=== PATIENT | female | born 1995 | race Caucasian/White ===

== ENCOUNTER 2018-07-04 13:32 | Observation (INO) ==
[2018-07-04] MEDS ORDERED: PROMETHAZINE HCL 12.5 MG in SODIUM CHLORIDE 0.9% 50 ML IV STA (14:15)
[2018-07-04] MEDS ORDERED: ACETAMINOPHEN 1,000 MG/100 ML VIAL IV STA (14:15)
[2018-07-04] MEDS ORDERED: ONDANSETRON INJ 2 MG/ML 2 ML VIAL IV STA (14:15)
[2018-07-04] MEDS ORDERED: SODIUM CHLORIDE 0.9% 1000ML 1,000 ML IV ONE (14:15)
[2018-07-04] MEDS ORDERED: KETOROLAC TROMETHAMINE 15 MG/ML VIAL IV STA (14:15)
[2018-07-04] MEDS ORDERED: PROMETHAZINE 12.5 MG/50.5 ML NSS IV ONE (14:23)
[2018-07-04 14:24] LABS: Basophils # (auto) 0.06 K/uL (0-0.2); Basophils % (auto) 0.4 %; Hematocrit (blood only) 48.3 % (37-47); Immature Granulocytes # (auto) 0.04 K/uL (0.00-0.02); Immature Granulocytes % (auto) 0.3 %; Lymphocytes # (auto) 1.28 K/uL (1.2-3.4); Lymphocytes % (auto) 8.1 %; Mean Corpuscular Hgb Conc 37.3 g/dL (32-36); Mean Corpuscular Volume 90.6 fL (80-100); Mean Platelet Volume 12.2 fL (7.4-10.4); Monocytes # (auto) 0.38 K/uL (0.11-0.59); Monocytes % (auto) 2.4 %; Neutrophils # (auto) 14.07 K/uL (1.4-6.5); Neutrophils % (auto) 88.8 %; Platelet Count 317 K/uL (130-400); RDW Coefficient of Variation 12.6 % (11.5-14.5); Red Blood Count 5.33 M/uL (4.2-5.4); White Blood Count 15.83 K/uL (4.8-10.8)
[2018-07-04] MEDS: MoRPHine SULFATE 4 MG/ML 1 ML CARP\\VIAL IV PRN ×2 (14:25→15:59)
[2018-07-04 14:35] LABS: Albumin Level 4.3 gm/dl (3.4-5.0); BUN Creatinine Ratio 15.6 (10-20); Calcium 9.5 mg/dl (8.5-10.1); Creatinine Clr Calc Pharmacy 108.3 ml/min; Est GFR (African American) 99.1; Est GFR (Non-African American) 85.5; Magnesium 2.2 mg/dl (1.8-2.4); Potassium 4.2 mmol/L (3.5-5.1)
[2018-07-04 14:38] LABS: Bilirubin,Total 0.7 mg/dl (0.2-1); Globulin 4.2 gm/dl (2.5-4.0); Total Protein 8.5 gm/dl (6.4-8.2)
--- NOTE | 2018-07-04 14:46 | XRay Report ---
XR chest 1V portable CLINICAL HISTORY: Possible free air COMPARISON STUDY: No previous studies for comparison. FINDINGS: No lucency is identified under the hemidiaphragms to suggest pneumoperitoneum. Lung volumes are normal and the lungs are clear. There is no pneumothorax or pleural effusion. Cardiac size is no rmal. Mediastinal contours are normal. IMPRESSION: 1. No acute cardiopulmonary findings. 2. No lucency under the hemidiaphragms to suggest pneumoperitoneum on upright chest radiograph. Electronically signed by: Tuan Menjivar M.D. 07/04/2018 2:44 PM
[2018-07-04 15:01] LABS: Pregnancy Test, Serum Negative (Negative)
--- NOTE | 2018-07-04 15:13 | Emergency Department Note ---
Entered by Miguel Angel Zhou acting as a scribe for Ahmet Gardner MD History of Present Illness General Chief complaint: Vomiting Time Seen by Provider: 07/04/18 14:07 Source: patient History of Present Illness Onset (ago): hour(s) 6 Location: abdomen Pain Consistency: + other (persistent) Quality: + other (nausea and vomiting) Associated symptoms: + other (upper abdominal pain) The patient is a 23 year old female who presents to the Emergency Room via BLS from [facility] with complaints of persistent nausea and vomiting beginning this morning at 08:00, about six hours ago. The patient states that she is still nauseous and has vomited several times today. She was given a dose of Phenergan and Valium this morning, and she was also given two doses of Zofran but spit up the second dose. The patient also reports some persistent upper abdominal pain. The patient has a history of methamphetamine, heroin, and other drug abuse and checked in last night to [facility] for rehabilitation. She states that her last substance use was heroin five days ago. She reports a history of heroin withdrawal and does not feel her current symptoms are similar. She does believe her symptoms are similar to prior gallbladder attacks, stating that she still has her gallbladder. She cannot think of anything that would have triggered her symptoms this morning. Home Medications Home Medications Medication Instructions Recorded Confirmed Type No Known Home Medications 07/04/18 07/04/18 History Allergies Allergy/AdvReac Type Severity Reaction Status Date / Time No Known Allergies Allergy Unverified 07/04/18 14:18 Past Med/Surg History Medical History History of drug abuse Social History Feels Safe at Home: Yes Smoking Status: Current every day smoker Hx Substance Use: Yes Review of Systems See HPI for pertinent positives & negatives. and A total of 10 systems reviewed and were otherwise negative Physical Exam Vital Signs Vital Signs - 24 hr 07/04/18 13:45 07/04/18 15:56 07/04/18 16:31 Temperature 36.9 C Temperature Source Oral Sepsis Recent Fever Within 48 Hours No Sepsis New/Unexplained Change in Mental Status No Sepsis Action Taken by Nursing No Action Required Pulse Rate 72 89 Pulse Rate [Apical] 63 Respiratory Rate 18 23 15 Respiratory Depth Normal Blood Pressure 98/81 L 123/74 Blood Pressure [Left Arm] 113/75 Blood Pressure Mean 86 90 Blood Pressure Mean [Left Arm] 87 Blood Pressure Position [Left Arm] Pulse Oximetry 98 100 97 Oxygen Delivery Method Room Air Room Air Room Air 07/04/18 17:01 07/04/18 17:30 07/04/18 17:58 Temperature Temperature Source Sepsis Recent Fever Within 48 Hours Sepsis New/Unexplained Change in Mental Status Sepsis Action Taken by Nursing Pulse Rate 68 56 L Pulse Rate [Apical] 58 L Respiratory Rate 18 24 19 Respiratory Depth Blood Pressure 132/82 137/90 Blood Pressure [Left Arm] 124/80 Blood Pressure Mean 98 105 Blood Pressure Mean [Left Arm] 94 Blood Pressure Position [Left Arm] Pulse Oximetry 97 98 Oxygen Delivery Method Room Air Room Air 07/04/18 18:15 Temperature 36.9 C Temperature Source Oral Sepsis Recent Fever Within 48 Hours Sepsis New/Unexplained Change in Mental Status Sepsis Action Taken by Nursing Pulse Rate Pulse Rate [Apical] 63 Respiratory Rate 17 Respiratory Depth Blood Pressure Blood Pressure [Left Arm] 119/73 Blood Pressure Mean Blood Pressure Mean [Left Arm] 88 Blood Pressure Position [Left Arm] Lying Pulse Oximetry 98 Oxygen Delivery Method Room Air GENERAL: Patient is in moderate distress secondary to pain and nausea. She is vomiting. HEENT: No acute trauma, normocephalic atraumatic, mucous membranes moist, no nasal congestion, no scleral icterus. NECK: No stridor, no adenopathy, no meningismus, trachea is midline. LUNGS: Wheezing bilaterally, breath sounds full and equal, no respiratory distress. HEART: Without murmurs gallops or rubs, regular rate and rhythm. ABDOMEN: Soft, moderate tenderness of the upper quadrants and epigastrium, bowel sounds positive, no hernias, no peritonitis. EXTREMITIES: No cyanosis or edema, full range of motion of all the joints without pain or difficulty, no signs for acute trauma. NEUROLOGIC: Oriented x 3, no acute motor or sensory deficits, no focal weakness. SKIN: Healing circular scabs about the face that are possibly consistent with methamphetamine abuse, no jaundice, no diaphoresis. Course 141: The patient was evaluated in room A9B. A complete history and physical examination were performed. 1456: I spoke to the patients mother on the phone. She states that 1.5 months ago the patient was kept in the [facility] for a week and had several tests including CT, endoscopy, and ultrasound that did not show any concerning findings. In retrospect the mother believes her symptoms at that time were due to withdrawal, and she feels this might also be the cause of her current symptoms. 1608: I checked on the patient, who states that she is feeling better. I updated her on the plan for hospitalization. 1620: I consulted Dr. Smith [facility] Hospitalist. The patient will be reevaluated for hospitalization. Administered Medications Lorazepam (Ativan) 1 mg in 2 mls @ 2 mls/min IV Q4H PRN PRN Reason: Agitation Stop: 08/03/18 18:06 Last Admin: 07/04/18 20:00 Dose: 2 mls/min Documented by: [id number] Discontinued Medications Acetaminophen (Ofirmev) 1,000 mg in 100 mls @ 400 mls/hr IV NOW STA Stop: 07/04/18 14:29 Last Infusion: 07/04/18 15:06 Dose: 0 mls/hr Documented by: [id number] Admin: 07/04/18 14:51 Dose: 400 mls/hr Documented by: [id number] Sodium Chloride (Nss 1000ml) 1,000 mls @ 999 mls/hr IV .Q1H1M ONE Stop: 07/04/18 15:15 Last Infusion: 07/04/18 15:26 Dose: 0 mls/hr Documented by: [id number] Admin: 07/04/18 14:25 Dose: 999 mls/hr Documented by: [id number] Promethazine HCl 12.5 mg/ (Sodium Chloride) 50.5 mls @ 202 mls/hr IV NOW STA Stop: 07/04/18 14:29 Last Admin: 07/04/18 14:30 Dose: Not Given Documented by: [id number] Multivitamins 10 ml/ Thiamine HCl 100 mg/ Folic Acid 1 mg/Sodium Chloride 1,011.2 mls @ 1,011.2 mls/hr IV .Q1H NONA Stop: 07/04/18 19:59 Last Admin: 07/04/18 19:37 Dose: 1,011.2 mls/hr Documented by: [id number] Ioversol (Optiray 320 100ml) 95 ml IV ONCE PRN PRN Reason: Interaction Checking Stop: 07/08/18 15:48 Last Admin: 07/04/18 15:49 Dose: 95 ml Documented by: [id number] Ketorolac Tromethamine (Toradol) 15 mg IV NOW STA Stop: 07/04/18 14:16 Last Admin: 07/04/18 14:25 Dose: 15 mg Documented by: [id number] Morphine Sulfate (Morphine Sulfate) 4 mg IV Q15M PRN PRN Reason: Pain Stop: 07/18/18 14:14 Last Admin: 07/04/18 15:59 Dose: 4 mg Documented by: [id number] Admin: 07/04/18 14:25 Dose: 4 mg Documented by: [id number] Ondansetron HCl (Zofran) 4 mg IV NOW STA Stop: 07/04/18 14:16 Last Admin: 07/04/18 14:25 Dose: 4 mg Documented by: [id number] Promethazine HCl (Phenergan) Confirm Administered Dose 12.5 mg IV .STK-MED ONE Stop: 07/04/18 14:24 Last Admin: 07/04/18 14:30 Dose: 12.5 mg Documented by: [id number] Medical Decision Making Differential Diagnosis Differential diagnosis: opiate withdrawal, acute cholecystitis, gastritis, hernia, pancreatitis, bowel rupture, bowel obstruction, biliary colic, dehydration Medical Records Attestation: I reviewed the patient's medical records. Home Medications Current Medication List: was personally reviewed by me Laboratory Data Attestation: I reviewed the patient's lab results. Result diagrams: 07/04/18 14:02 07/04/18 14:02 Lab Results 07/04/18 07/04/18 07/04/18 Range/Units 14:02 14:02 14:02 WBC 15.83 H (4.8-10.8) K/uL RBC 5.33 (4.2-5.4) M/uL Hgb 18.0 H (12.0-16.0) g/dL Hct 48.3 H (37-47) % MCV 90.6 (80-100) fL MCH 33.8 (25-34) pg MCHC 37.3 H (32-36) g/dL RDW Std Deviation 42.0 (36.4-46.3) fL RDW Coeff of Benedict 12.6 (11.5-14.5) % Plt Count 317 (130-400) K/uL MPV 12.2 H (7.4-10.4) fL Immature Gran % (Auto) 0.3 % Neut % (Auto) 88.8 % Lymph % (Auto) 8.1 % Beltrami % (Auto) 2.4 % Eos % (Auto) 0.0 % Baso % (Auto) 0.4 % Immature Gran # (Auto) 0.04 H (0.00-0.02) K/uL Neut # (Auto) 14.07 H (1.4-6.5) K/uL Lymph # (Auto) 1.28 (1.2-3.4) K/uL Bel[place]ami # (Auto) 0.38 (0.11-0.59) K/uL Eos # (Auto) 0.00 (0-0.5) K/uL Baso # (Auto) 0.06 (0-0.2) K/uL Sodium 139 (136-145) mmol/L Potassium 4.2 (3.5-5.1) mmol/L Chloride 106 (98-107) mmol/L Carbon Dioxide 24 (21-32) mmol/L Anion Gap 9.0 (3-11) BUN 15 (7-18) mg/dl Creatinine 0.94 (0.6-1.2) mg/dl Est Cr Clr Drug Dosing 108.3 ml/min Est GFR ( Amer) 99.1 Est GFR (Non-Af Amer) 85.5 BUN/Creatinine Ratio 15.6 (10-20) Glucose 104 H (70-99) mg/dl Lactate (0.4-2.0) mmol/L Calcium 9.5 (8.5-10.1) mg/dl Magnesium 2.2 (1.8-2.4) mg/dl Total Bilirubin 0.7 (0.2-1) mg/dl AST 14 L (15-37) U/L ALT 23 (12-78) U/L Alkaline Phosphatase 67 (45-117) U/L Total Protein 8.5 H (6.4-8.2) gm/dl Albumin 4.3 (3.4-5.0) gm/dl Globulin 4.2 H (2.5-4.0) gm/dl Albumin/Globulin Ratio 1.0 (0.9-2) Lipase 71 L (73-393) U/L HCG, Qual Negative (Negative) 07/04/18 Range/Units 14:36 WBC (4.8-10.8) K/uL RBC (4.2-5.4) M/uL Hgb (12.0-16.0) g/dL Hct (37-47) % MCV (80-100) fL MCH (25-34) pg MCHC (32-36) g/dL RDW Std Deviation (36.4-46.3) fL RDW Coeff of Benedict (11.5-14.5) % Plt Count (130-400) K/uL MPV (7.4-10.4) fL Immature Gran % (Auto) % Neut % (Auto) % Lymph % (Auto) % Beltrami % (Auto) % Eos % (Auto) % Baso % (Auto) % Immature Gran # (Auto) (0.00-0.02) K/uL Neut # (Auto) (1.4-6.5) K/uL Lymph # (Auto) (1.2-3.4) K/uL Beltrami # (Auto) (0.11-0.59) K/uL Eos # (Auto) (0-0.5) K/uL Baso # (Auto) (0-0.2) K/uL Sodium (136-145) mmol/L Potassium (3.5-5.1) mmol/L Chloride (98-107) mmol/L Carbon Dioxide (21-32) mmol/L Anion Gap (3-11) BUN (7-18) mg/dl Creatinine (0.6-1.2) mg/dl Est Cr Clr Drug Dosing ml/min Est GFR ( Amer) Est GFR (Non-Af Amer) BUN/Creatinine Ratio (10-20) Glucose (70-99) mg/dl Lactate 1.0 (0.4-2.0) mmol/L Calcium (8.5-10.1) mg/dl Magnesium (1.8-2.4) mg/dl Total Bilirubin (0.2-1) mg/dl AST (15-37) U/L ALT (12-78) U/L Alkaline Phosphatase (45-117) U/L Total Protein (6.4-8.2) gm/dl Albumin (3.4-5.0) gm/dl Globulin (2.5-4.0) gm/dl Albumin/Globulin Ratio (0.9-2) Lipase (73-393) U/L HCG, Qual (Negative) Imaging Data Radiologist's Impression: Radiology results as stated below per my review and the radiologist's interpretation: CT OF THE ABDOMEN AND PELVIS WITH CONTRAST CLINICAL HISTORY: Epigastric pain and vomiting. Possible perforation. COMPARISON STUDY: None. TECHNIQUE: Following IV administration of 95 mL of Optiray-320, axial images of the abdomen and pelvis were obtained from the lung bases to the proximal femurs. Images were reviewed in the axial, sagittal, and coronal planes. IV contrast was administered without complication. Automated exposure control was utilized for the study. A dose lowering technique was utilized adhering to the principles of ALARA. CT DOSE: 925.12 mGycm FINDINGS: Lung bases are clear. No pneumatosis, free air or portal venous gas is present. The liver, spleen, adrenal glands, kidneys and pancreas are unremarkable. There is no biliary or pancreatic ductal dilatation. There is no peripancreatic or pericholecystic infiltration. No hydronephrosis is present and both nephrograms are symmetric. There is no evidence for a bowel obstruction. The appendix is partially visualized portions are normal. There is no right lower quadrant inflammation. There are no ureteral calculi. Contrast within the collecting systems decreases sensitivity for detection of renal calculi. The ovaries are not enlarged. IMPRESSION: 1. No acute process within the abdomen or pelvis. 2. Partially obscured appendix but no right lower quadrant inflammation. Electronically signed by: Tuan Menjivar M.D. 07/04/2018 4:02 PM XR chest 1V portable CLINICAL HISTORY: Possible free air COMPARISON STUDY: No previous studies for comparison. FINDINGS: No lucency is identified under the hemidiaphragms to suggest pneumoperitoneum. Lung volumes are normal and the lungs are clear. There is no pneumothorax or pleural effusion. Cardiac size is normal. Mediastinal contours are normal. IMPRESSION: 1. No acute cardiopulmonary findings. 2. No lucency under the hemidiaphragms to suggest pneumoperitoneum on upright chest radiograph. Electronically signed by: Tuan Menjivar M.D. 07/04/2018 2:44 PM ECG Data Attestation: I personally reviewed and interpreted this ECG as follows: Indication: vomiting Rate (beats per minute): 57 Rhythm: sinus bradycardia Findings: no PVC and no ST elevation Blood Pressure Blood Pressure Findings: Normal blood pressure Blood Pressure Disposition: did not require urgent referral MDM Narrative There is a moderate leukocytosis at 15,000, this could be consistent with infection or just her vomiting. Hemoglobin was actually high at 18. Platelet count was normal. No significant electrolyte abnormality or kidney failure. Lactic acid level was not elevated making bowel ischemia or sepsis less likely. There was no findings of hepatitis. No findings of pancreatitis. testing was negative. Chest film did not show mediastinal widening, pneumonia or free air. Abdominal and pelvis CT showed no acute surgical process. No free air, no bowel obstruction. The gallbladder and pancreas appeared normal on CT scan. The patient was given IV Tylenol, IV Toradol, IV morphine, IV Zofran and IV Phenergan. She received IV saline. The patient still has some abdominal pain but feels improved. She is no longer vomiting. I talked with her about staying in the hospital for further care. At this point, I suspect her presentation is consistent with narcotic withdrawal. I did speak to the patient's mother over the phone. The patient had a very similar presentation a month and a half ago, multiple tests were performed and no reason for her symptoms was discovered. In retrospect, the patient's mother now believes the recent hospitalization was secondary to withdrawal. I did speak to the patient at length about my findings, I talked with the correctional case records supervisor. The on-call hospitalist was consulted. Impression & Plan Epigastric abdominal pain, Vomiting, Dehydration, Withdrawal syndrome Discharge Plan Visit Data *Final* Discharge Date/Time: 07/04/18 18:03 Chief Complaint: Vomiting ED Provider: Ahmet Gardner Discharge Problem: Epigastric abdominal pain, Vomiting, Dehydration, Withdrawal syndrome Patient Disposition: Admitted As Inpatient Discharge Instructions Interventions: ED Discharge Assessment Last Done: 07/04/18 18:03 Discharge Problem: Vomiting Qualifiers: Vomiting type: unspecified Vomiting Intractability: non-intractable Nausea presence: with nausea Qualified Code(s): R11.2 - Nausea with vomiting, unspecified Withdrawal syndrome Qualifiers: Substance type: opioid Qualified Code(s): F11.23 - Opioid dependence with withdrawal The patricio's documentation has been prepared under my direction and personally reviewed by me in its entirety. I confirm that the note above accurately reflec ts all work, treatment, procedures, and medical decision making performed by me.
[2018-07-04] MEDS ORDERED: IOVERSOL 100ml IV PRN (15:49)
--- NOTE | 2018-07-04 16:04 | CT Scan Report ---
CT OF THE ABDOMEN AND PELVIS WITH CONTRAST CLINICAL HISTORY: Epigastric pain and vomiting. Possible perforation. COMPARISON STUDY: None. TECHNIQUE: Following IV administration of 95 mL of Optiray-320, axial images of the abdomen and pelvi s were obtained from the lung bases to the proximal femurs. Images were reviewed in the axial, sagitt al, and coronal planes. IV contrast was administered without complication. Automated exposure contro l was utilized for the study. A dose lowering technique was utilized adhering to the principles of A MANDO. CT DOSE: 925.12 mGycm FINDINGS: Lung bases are clear. No pneumatosis, free air or portal venous gas is present. The liver, spleen, adrenal glands, kidneys and pancreas are unremarkable. There is no biliary or pancreatic duct al dilatation. There is no peripancreatic or pericholecystic infiltration. No hydronephrosis is prese nt and both nephrograms are symmetric. There is no evidence for a bowel obstruction. The appendix is partially visualized portions are normal. There is no right lower quadrant inflammation. There are no ureteral calculi. Contrast within the collecting systems decreases sensitivity for detection of kervin l calculi. The ovaries are not enlarged. IMPRESSION: 1. No acute process within the abdomen or pelvis. 2. Partially obscured appendix but no right lower quadrant inflammation. Electronically signed by: Tuan Menjivar M.D. 07/04/2018 4:02 PM
--- NOTE | 2018-07-04 16:17 | History & Physical Report ---
Date of Service July 04, 2018 Assessment & Plan (1) Vomiting: At this time we feel her vomiting is most likely related to withdrawal. Possibly gastritis should be placed on intravenous hydration and intravenous Pepcid therapy after banana bag. (2) Withdrawal syndrome: Likely this patient having a multi-pharmaceutical withdrawal. [facility] to be on a scheduled Suboxone taper, this would be 8 mg twice daily for the first 2 days then reduce to 4 mg twice daily for 2 days and 2 mg twice daily for 2 days and 1 mg twice daily for 2 days. Additional medicines recommended are Vistaril 50 mg p.o. for anxiety doxepin 50 mg p.o. for insomnia clonidine 0.1 PRN for hypertension Imodium as needed for diarrhea Valium as needed for agitation and naloxone as needed for sedation We will continue the Suboxone we have clonidine PRN Ativan for hypertension and anxiety and Imodium for diarrhea. History of Present Illness Primary Care Provider: NO PCP 23-year-old female who recently went to drug and alcohol rehab she presented to our hospital with intractable nausea vomiting abdominal pain. After arrival her mother called the emergency room physician, Dr. Gardner, and said that she had gone through a similar episode about 1 month prior to out to the hospital at which time she is an inpatient stay with multiple testing including endoscopy without any evidence of etiology of her abdominal pain including ruling out gallbladder disease. In our ER she is fairly normal laboratories, CT scan of abdomen pelvis with contrast which does not show any intra-abdominal pathology. She is given 4 of morphine and Zofran she her symptoms have improved although she did have one mor e episode of vomiting. She denies having any unusual foods, she denies any IV drug abuse, Her withdrawal paperwork from a dose of drug and alcohol rehab includes B drugs of abuse of heroin, methamphetamine, barbiturates, benzodiazepines, and MDMA Attempts to obtain family history is UNobtainable as the patient is lethargic and mumbling Allergies Allergy/AdvReac Type Severity Reaction Status Date / Time No Known Allergies Allergy Unverified 07/04/18 14:18 Home Medications Home Medications Medication Instructions Recorded Confirmed Type No Known Home Medications 07/04/18 07/04/18 History Past Med/Surg History Medical History History of drug abuse Social History Preferred Language: [place] Islander Communication Ability: Effective 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 She is skin cameron consistent with methamphetamine usage on her face and she has what appears to be thinning of the enamel of her teeth consistent with methamphetamine also. Vital signs as documented. Head exam is unremarkable. normocephalic, atraumatic Neck is without jugular venous distension, thyromegaly, or lymphademopathy Lungs are clear to auscultation and percussion. Cardiac exam reveals Rhythm is regular. First and second heart sounds normal. Abdominal exam reveals normal bowel sounds, no masses, no organomegaly is tender to examination no rebound no guarding there is no CVA angle tenderness although she complains of midline lower back tenderness Extremities are nonedematous and both pedal pulses are present Neurologic exam is unfortunately she is sedated due to the recent morphine and Zofran administration Psychologically cannot be assessed at this time due to sedation Skin is warm Dry she has marked facial changes of acne or methamphetamine skin changes Results & Data Vital Signs (Past 12 Hours) Vital Signs Temp Pulse Pulse Resp BP BP Pulse Ox 07/04/18 15:56 63 23 113/75 100 07/04/18 13:45 36.9 C 72 18 98/[address] abdomen pelvis with contrast No acute process within the abdomen or pelvis. Partially obscured appendix but no right lower quadrant inflammation. (1) Withdrawal syndrome Substance type: opioid Qualified Code(s): F11.23 - Opioid dependence with withdrawal (2) Vomiting Nausea presence: with nausea Vomiting Intractability: non-intractable Vomiting type: unspecified Qualified Code(s): R11.2 - Nausea with vomiting, unspecified
[2018-07-04] MEDS ORDERED: PROMETHAZINE HCL 12.5 MG in SODIUM CHLORIDE 0.9% 50 ML IV PRN (18:07)
[2018-07-04] MEDS ORDERED: LOPERAMIDE HCL 2 MG CAP PO PRN (18:07)
[2018-07-04] MEDS ORDERED: cloNIDine HCl 0.1 MG TAB PO PRN (18:07)
[2018-07-04] MEDS ORDERED: LORazepam 1 MG/2 ML VIAL IV PRN (18:07)
[2018-07-04] MEDS ORDERED: ACETAMINOPHEN 325 MG TAB PO PRN (18:07)
[2018-07-04] MEDS ORDERED: ONDANSETRON INJ 2 MG/ML 2 ML VIAL IV PRN (18:07)
[2018-07-04] MEDS ORDERED: ALUMINUM/MAGNESIUM SUSP 30 ML UDC PO PRN (18:07)
[2018-07-04] MEDS ORDERED: MULTI-VITAMIN INFUSION 10 ML, THIAMINE HCL 100 MG, FOLIC ACID 1 MG in SODIUM CHLORIDE 0... IV SCH (19:00)
[2018-07-04] MEDS ORDERED: FAMOTIDINE 20MG/5ML IV PUSH IV SCH (21:00)
[2018-07-04] MEDS: SODIUM CHLORIDE 0.9% 1000ML 1,000 ML IV SCH (21:11)
[2018-07-04] MEDS: FAMOTIDINE 20 MG in SYRINGE 3 ML IV SCH (21:11)
[2018-07-04] MEDS: BUPRENORPHINE/NALOXONE 8/2 MG TAB SL SCH (21:27)
[2018-07-05 06:23] LABS: Appearance Urine Clear (Clear); Bacteria Urine Automated Negative (Negative); Bilirubin Urine Negative (Negative); Blood Urine Negative (Negative); Color Urine Yellow; Epithelial Cell Urine Auto >30 /lpf (0-5); Glucose Urine UA Negative (Negative); Leukocyte Esterase Urine Negative (Negative); Nitrite Urine Negative (Negative); Protein Urine Trace (Negative); Specific Gravity Urine > 1.045 (1.000-1.030); Urobilinogen Urine Negative (Negative); pH Urine 5.5 (4.5-7.5)
[2018-07-05 06:25] LABS: Ketones Urine 4+ (Negative)
[2018-07-05 08:13] LABS: Hematocrit (blood only) 44.3 % (37-47); Hemoglobin 15.7 g/dL (12.0-16.0); Mean Corpuscular Hgb Conc 35.4 g/dL (32-36); Mean Corpuscular Volume 91.7 fL (80-100); Mean Platelet Volume 12.6 fL (7.4-10.4); Platelet Count 272 K/uL (130-400); RDW Coefficient of Variation 12.8 % (11.5-14.5); RDW Standard Deviation 42.9 fL (36.4-46.3); Red Blood Count 4.83 M/uL (4.2-5.4); White Blood Count 13.37 K/uL (4.8-10.8)
[2018-07-05] MEDS: SODIUM CHLORIDE 0.9% 1000ML 1,000 ML IV SCH ×2 (08:38→16:26)
[2018-07-05 08:55] LABS: BUN Creatinine Ratio 14.5 (10-20); Calcium 8.8 mg/dl (8.5-10.1); Creatinine Clr Calc Pharmacy 135.7 ml/min; Est GFR (African American) 130.2; Est GFR (Non-African American) 112.4; Potassium 3.6 mmol/L (3.5-5.1)
[2018-07-05] MEDS: FAMOTIDINE 20 MG in SYRINGE 3 ML IV SCH ×2 (09:54→20:36)
[2018-07-05] MEDS: BUPRENORPHINE/NALOXONE 8/2 MG TAB SL SCH ×2 (10:10→20:34)
--- NOTE | 2018-07-05 16:21 | Hospitalist Progress Note ---
Date of Service July 05, 2018 Assessment & Plan (1) Vomiting: Her vomiting is improving and is related to withdrawal. We will continue to hydrate her she is not dramatically eating food yet we will continue to offer this to her Patient is developing hyperchloremia from the persistent normal saline infusion will change to lactated Ringer's 5/5 (2) Withdrawal syndrome: This patient having a multi-pharmaceutical withdrawal. According to [facility] we will institute and continue a scheduled Suboxone taper, this would be 8 mg twice daily for the first 2 days then reduce to 4 mg twice daily for 2 days and 2 mg twice daily for 2 days and 1 mg twice daily for 2 days. AdditionallyVistaril 50 mg p.o. for anxiety doxepin 50 mg p.o. for insomnia clonidine 0.1 PRN for hypertension Imodium as needed for diarrhea Valium as needed for agitation clonidine PRN for hypertension Subjective Patient still lethargic but much more awake and alert today. She is then asked for any additional parenteral opiates and she is on Suboxone taper as directed by her previous rehab center. We discussions with the bedside she is planning on returning to the rehab center when she is somewhat better. She did have some episodes of vomiting earlier this morning but none since that time Review of Systems Review of Systems: ROS: well nourished well developed. Has typical facial acne associate with methamphetamine use No double vision blurry vision No problems with speech or swallowing No palpitations, chest pain or pressure No Wheezing or breathing issues Persistent but improving abdominal pain and mild nausea with vomiting this a.m. no complains of diarrhea yet No burning urine urine frequency or changes in color No focal joint pain or muscle pain Facial skin acne No unusual bruising or bleeding Persistent low back pain without radicular complaints No changes in memory or confusion Physical Exam Physical Exam: The patient appeared well nourished and normally developed. In only mild distress today Vital signs as documented. Head exam is unremarkable. normocephalic, atraumatic Neck is without jugular venous distension, thyromegaly, or lymphademopathy Lungs are clear to auscultation and percussion. Cardiac exam reveals Rhythm is regular. First and second heart sounds normal. Abdominal exam reveals normal bowel sounds, no masses, no organomegaly Extremities are nonedematous and both pedal pulses are present Neurologic exam is A&Ox3 Psychologically seems depressed Skin is warm Dry with facial skin changes consistent with methamphetamine use Results & Data Vital Signs (Past 12 Hours) Vital Signs Temp Pulse Pulse Resp BP BP Pulse Ox 07/05/18 15:39 36.5 C 71 18 102/62 96 07/05/18 07:15 36.8 C 69 16 118/71 97 (1) Withdrawal syndrome Substance type: opioid Qualified Code(s): F11.23 - Opioid dependence with withdrawal (2) Vomiting Nausea presence: with nausea Vomiting Intractability: non-intractable Vomiting type: unspecified Qualified Code(s): R11.2 - Nausea with vomiting, unspecified
[2018-07-05] MEDS: LACTATED RINGER'S 1,000 ML IV SCH (16:25)
[2018-07-05 17:25] LABS: INR 1.2 (0.9-1.1); Prothrombin Time 11.8 Seconds (9.0-12.0)
[2018-07-05] MEDS ORDERED: ENOXAPARIN INJ 40 MG/0.4 ML SYR SQ SCH (18:00)
[2018-07-05 21:33] LABS: Amphetamines+Metham, Urine Neg (Neg); Barbiturates, Urine Neg (Neg); Benzodiazepine, Urine Neg (Neg); Cocaine, Urine Neg (Neg); MDMA (Ecstacy), Urine Neg (Neg); Methadone, Urine Neg (Neg); Opiate, Urine Pos (Neg); Phencyclidine, Urine Neg (Neg)
[2018-07-06] MEDS: LACTATED RINGER'S 1,000 ML IV SCH ×2 (00:03→08:08)
[2018-07-06 06:32] LABS: Hematocrit (blood only) 38.9 % (37-47); Mean Corpuscular Volume 91.1 fL (80-100); Mean Platelet Volume 12.1 fL (7.4-10.4); Platelet Count 205 K/uL (130-400); RDW Coefficient of Variation 12.7 % (11.5-14.5); RDW Standard Deviation 42.5 fL (36.4-46.3); Red Blood Count 4.27 M/uL (4.2-5.4); White Blood Count 8.12 K/uL (4.8-10.8)
[2018-07-06 07:05] VITALS: BP 97/58; TEMP 97.9; O2SAT 95
[2018-07-06 07:14] LABS: BUN Creatinine Ratio 11.3 (10-20); Calcium 8.3 mg/dl (8.5-10.1); Creatinine Clr Calc Pharmacy 143.4 ml/min; Est GFR (African American) 139.1; Est GFR (Non-African American) 120.1; Potassium 3.6 mmol/L (3.5-5.1)
[2018-07-06] MEDS: FAMOTIDINE 20 MG in SYRINGE 3 ML IV SCH (08:10)
[2018-07-06] MEDS: BUPRENORPHINE/NALOXONE 8/2 MG TAB SL SCH (08:38)
[2018-07-06] MEDS ORDERED: BUPRENORPHINE/NALOXONE 2/0.5MG 1 TAB PO SCH ×2 (09:00→21:00)
--- NOTE | 2018-07-06 10:47 | Discharge Summary ---
Date of Service July 06, 2018 Admission HPI Per Admitting Provider 23-year-old female who recently went to drug and alcohol rehab she presented to our hospital with intractable nausea vomiting abdominal pain. After arrival her mother called the emergency room physician, Dr. Gardner, and said that she had gone through a similar episode about 1 month prior to out to the hospital at which time she is an inpatient stay with multiple testing including endoscopy without any evidence of etiology of her abdominal pain including ruling out gallbladder disease. In our ER she is fairly normal laboratories, CT scan of abdomen pelvis with contrast which does not show any intra-abdominal pathology. She is given 4 of morphine and Zofran she her symptoms have improved although she did have one more episode of vomiting. She denies having any unusual foods, she denies any IV drug abuse, Her withdrawal paperwork from a dose of drug and alcohol rehab includes B drugs of abuse of heroin, methamphetamine, barbiturates, benzodiazepines, and MDMA Attempts to obtain family history is UNobtainable as the patient is lethargic and mumbling Principal Diagnosis Nausea/vomiting, Opioid withdrawal Discharge Exam Constitutional WD/WN, vitals as above Eyes PERRL, conjunctivae normal, anicteric sclerae ENMT external ear and nose normal, oropharynx normal Neck trachea midline, no thyromegaly Respiratory normal respiratory effort, lungs clear to auscultation Cardiovascular RRR, no murmur, no edema Gastrointestinal (Abdomen) normal bowel sounds, soft, nontender, no hepatosplenomegaly Musculoskeletal Extremities: extremities normal to inspection; no cyanosis and no clubbing Skin + lesion (multiple acneiform lesions and cystic lesions, scars on cheeks and f orehead) Neurologic moves all extremities and awake; no focal motor deficits Psychiatric A+Ox3, euthymic affect Discharge Data Allergies Allergy/AdvReac Type Severity Reaction Status Date / Time No Known Allergies Allergy Unverified 07/04/18 14:18 Consultations None Ordered Studies 07/04/18 14:15 CT abd pelvis IV con only Stat CXR Hospital Course (1) Vomiting: Her vomiting is improving and is related to opioid withdrawal. -she was hydrated with IVFs, given antiemetics prn -given a suboxone taper and had significant improvement Was tolerating a regular diet by the day of discharge and not requiring any antiemetics. Continue suboxone taper (2) Withdrawal syndrome: According to [facility] -recommended a scheduled Suboxone taper, this would be 8 mg twice daily for the first 2 days then reduce to 4 mg twice daily for 2 days and 2 mg twice daily for 2 days and 1 mg twice daily for 2 days. -improved, continue taper as above -continue loperamide as needed for diarrhea but not having any currently (3) Multiple sclerosis: Diagnosed at age 21 with optic neuritis, headaches, and variou sparesthesias and weakness. Follows with Neurology Dr. Thomas in [place], [place] q6 months -was previously on Tecfidera but now off and not taking any meds -no active symptoms -f/u routinely [facility] (4) Opioid dependence: as above (5) DVT prophylaxis: Lovenox SQ was provided Dispo-dc to inpatient drug rehab today Total Time Total Time Spent Total Time Spent (In Minutes): >30 min Total Time Includes: Examination of the Patient, Discharge Planning and Medication Reconciliation Discharge Plan Discharge Items Patient Disposition: Drug & Alcohol Rehab Reason For Visit: INTRACTABLE NAUSEA Discharge Diagnosis: intractable nausea/vomiting, opioid withdrawal Condition: Good Discharge Goals: Decrease discomfort, Diagnostic testing, Improve disease control, Learn about illness and Therapeutic intervention Activity: Resume your previous activity Lifting: Gradually increase as tolerated Bathing: No limitations Exercise/Sports: Gradually increase as tolerated Non-emergency contact: Primary Care Provider Call non-emergency contact if: you have any medication questions, your symptoms worsen, your pain is not controlled and your temperature is above 100.5 Follow-up/Referrals: PCP,NO [Primary Care Provider] - Diet: Regular Addtl Provider Instructions: You were admitted with nausea and vomiting secondary to opioid withdrawal which improved with taking suboxone, IV fluids, and anti-nausea medications. Please continue to drink plenty of fluids and continue on your suboxone taper as prescribed. It is important that you abstain from smoking cigarettes and all illicit drug use. Best wishes on your recovery! Prescriptions: New buprenorphine-naloxone [Suboxone] 2-0.5 mg Film 1 ea PO BID Qty: 2 RF: 0 loperamide 2 mg Capsule 2 mg PO Q4 PRN (Reason: loose stool) Qty: 30 RF: 0 No Action No Known Home Medications RF: 0 Stand-Alone Forms: My [facility] Admission Data Admit Date/Time: 07/04/18 16:21 Attending Provider: Olivia Connell Admit Provider: Deuce Smith Primary Care Provider: PCP,NO Other Providers: Deuce Smith Service: Medical Other Pending Studies at Discharge: No
[2018-07-06 10:57] VITALS: PULSE 69
[2018-07-08 10:45] LABS: Hydrocodone Urine NEGATIVE NG/ML (CUTOFF=50); Hydromor Urine NEGATIVE NG/ML (CUTOFF=50); Morphine Urine 230 NG/ML (CUTOFF=50); Norhydrocodone Conf Ur NEGATIVE NG/ML (CUTOFF=50); Noroxycodone Urine NEGATIVE NG/ML (CUTOFF=50); Oxycodone Urine NEGATIVE NG/ML (CUTOFF=50)
== END 2018-07-06 14:08 | disposition alcohol treatment (31) ==
LOC: 4W 13:32 → ED 13:32 → SUATTDRO 16:21 → 4W 18:03